=== PATIENT | female | born 1995 | race African-American/Black ===

== ENCOUNTER 2018-03-02 14:00 | Emergency (ER) | payer BC ==
[~2018-03-02] VITALS: Ht 167.6 cm; Wt 58.9 kg
[2018-03-02 15:17] LABS: BASOPHILS # (AUTO) 0.03 x10^3/uL (0-0.1); BASOPHILS % (AUTO) 0 % (0-1); EOSINOPHILS # (AUTO) 0.02 x10^3/uL (0-0.4); EOSINOPHILS % (AUTO) 0 % (1-7); LYMPHOCYTES # (AUTO) 2.06 x10^3/uL (1-3.4); LYMPHOCYTES % (AUTO) 20 % (22-44); MD NO; MEAN CORPUSCULAR HEMOGLOBIN 28.1 pg (27.0-34.8); MEAN CORPUSCULAR HGB CONC 33.2 g/dL (32.4-35.8); MEAN CORPUSCULAR VOLUME 84.8 fL (80-100); MEAN PLATELET VOLUME 9.2 fL (7.4-10.4); MONOCYTES # (AUTO) 0.91 x10^3/uL (0.2-0.8); MONOCYTES % (AUTO) 9 % (2-9); NEUTROPHILS # (AUTO) 7.29 x10^3/uL (1.8-6.8); NEUTROPHILS % (AUTO) 71 % (42-75); PLATELET COUNT 240 x10^3/uL (130-400); RED BLOOD COUNT 4.86 x10^6/uL (3.82-5.3); RED CELL DISTRIBUTION WIDTH 14.4 % (9.6-15.2)
[2018-03-02 15:31] LABS: ALANINE AMINOTRANSFERASE 22 U/L (12-78); ALBUMIN 3.6 g/dL (3.4-5.0); ANION GAP 7 mmol/L (5-15); CALCIUM 8.7 mg/dL (8.5-10.1); CHLORIDE 111 mmol/L (98-107); CREATININE 0.67 mg/dL (0.55-1.02)
[2018-03-02 15:39] LABS: MICROSCOPIC NOT IND
[2018-03-02 15:39] LABS: ALKALINE PHOSPHATASE 94 U/L (45-117); BILIRUBIN,TOTAL 0.5 mg/dL (0.2-1.0); TOTAL PROTEIN 7.5 g/dL (6.4-8.2)
[2018-03-02 15:50] LABS: CULTURE INDICATED? NO
[2018-03-02 17:55] VITALS: BP 120/81
== END 2018-03-02 17:56 | disposition home or self-care (01) ==
LOC: ED 15:03
DX: O26.891 Other specified pregnancy related conditions, first trimester (principal); R10.9 Unspecified abdominal pain; R51 Headache; Z32.01 Encounter for pregnancy test, result positive; Z3A.01 Less than 8 weeks gestation of pregnancy
CPT/HCPCS: 36415; 76801; 80053; 81003; 83690; 84702; 84703; 85025; 99285

== ENCOUNTER 2018-08-31 16:22 | Outpatient (CLI) | payer BC ==
[~2018-08-31] VITALS: Ht 167.6 cm; Wt 76.4 kg
[2018-08-31 16:38] VITALS: BP 128/72
[2018-08-31] MEDS ORDERED: PREN1TAB10 PO (18:01)
== END 2018-08-31 18:11 | disposition home or self-care (01) ==
LOC: LDOP 16:22
PROVIDERS: ATTEND Student in an Organized Health Care Education/Training Program
DX: O36.8130 Decreased fetal movements, third trimester, not applicable or unspecified (principal); Z3A.32 32 weeks gestation of pregnancy
CPT/HCPCS: 59025; 76819; 99201; G0463

== ENCOUNTER 2019-03-13 02:05 | Emergency (ER) | payer SELFPAY ==
[~2019-03-13] VITALS: Ht 170.2 cm; Wt 73.0 kg
[~2019-03-13 02:05] MED LIST: PREN1TAB10 PO
[2019-03-13] MEDS ORDERED: MAALOX/HYOSCYAMINE/LIDOCAINE 45 ML BTL PO ONE (02:30)
[2019-03-13 02:40] LABS: BASOPHILS # (AUTO) 0.03 x10^3/uL (0-0.1); BASOPHILS % (AUTO) 0 % (0-1); EOSINOPHILS # (AUTO) 0.12 x10^3/uL (0-0.4); EOSINOPHILS % (AUTO) 2 % (1-7); LYMPHOCYTES # (AUTO) 2.89 x10^3/uL (1-3.4); LYMPHOCYTES % (AUTO) 35 % (22-44); MD NO; MEAN CORPUSCULAR HEMOGLOBIN 27.9 pg (27.0-34.8); MEAN CORPUSCULAR HGB CONC 32.6 g/dL (32.4-35.8); MEAN CORPUSCULAR VOLUME 85.5 fL (80-100); MEAN PLATELET VOLUME 9.1 fL (7.4-10.4); MONOCYTES % (AUTO) 9 % (2-9); NEUTROPHILS # (AUTO) 4.46 x10^3/uL (1.8-6.8); NEUTROPHILS % (AUTO) 54 % (42-75); PLATELET COUNT 259 x10^3/uL (130-400); RED BLOOD COUNT 4.66 x10^6/uL (3.82-5.3); RED CELL DISTRIBUTION WIDTH 14.5 % (9.6-15.2)
[2019-03-13] MEDS ORDERED: MAALOX/HYOSCYAMINE/LIDOCAINE 45 ML BTL ONE (02:40)
--- NOTE | 2019-03-13 02:55 | NUR ---
PT MEDICATED PER EMAR FOR GI PAIN.
[2019-03-13 03:04] LABS: ALANINE AMINOTRANSFERASE 18 U/L (12-78); ALBUMIN 3.4 g/dL (3.4-5.0); ANION GAP 7 mmol/L (5-15); CALCIUM 8.4 mg/dL (8.5-10.1); CHLORIDE 111 mmol/L (98-107); CREATININE 0.77 mg/dL (0.55-1.02)
[2019-03-13 03:19] LABS: ALKALINE PHOSPHATASE 182 U/L (45-117); BILIRUBIN,TOTAL 0.2 mg/dL (0.2-1.0); TROPONIN I < 0.015 ng/mL (0.000-0.045)
--- NOTE | 2019-03-13 03:50 | NUR ---
PT HCG QUANT ELEVATED, US ORDERED.
[2019-03-13 03:55] VITALS: BP 129/80
--- NOTE | 2019-03-13 05:38 | NUR ---
AWAITING US READ. PT DRESSED IN STREET CLOTHS PLAYING ON PHONE. NO COMPLAINTS AT THIS TIME.
--- NOTE | 2019-03-13 06:03 | NUR ---
US CONTACTED, THERE IS STILL NO RESULT ON US. US TECH STATED WILL CHECK THAT IMAGE WAS SENT.
== END 2019-03-13 06:15 | disposition home or self-care (01) ==
LOC: ED 02:57
DX: O26.891 Other specified pregnancy related conditions, first trimester (principal); Z32.01 Encounter for pregnancy test, result positive; R07.2 Precordial pain; R10.13 Epigastric pain; K21.9 Gastro-esophageal reflux disease without esophagitis; Z3A.01 Less than 8 weeks gestation of pregnancy
CPT/HCPCS: 36415; 71045; 76830; 80053; 83690; 84484; 84702; 84703; 85025; 86677; 93005; 99284